=== PATIENT | female | born 1980 | race Caucasian/White ===

== ENCOUNTER 2023-10-02 16:36 | Emergency (ER) | payer BC, OTHER, SELFPAY ==
[2023-10-02 16:53] VITALS: BP 121/83; PULSE 78; RESP 18; TEMP 36.9; O2SAT 100; BMI 20.9
--- NOTE | 2023-10-02 17:22 | ED.EXTPRO ---
HPI - Extremity Problem <Jus Guadalupe PA-C - Last Filed: 10/02/23 17:41> General Chief complaint: Extremity Problem,Nontraumatic Stated complaint: Left arm injury Time Seen by Provider: 10/02/23 17:22 Source: patient Mode of arrival: Ambulatory History of Present Illness HPI Narrative: This is a 43-year-old female presents emergency department due to a developing mass affecting her left forearm area over the last week. She states it is somewhat tender to the touch with mild redness. She denies any fevers, nausea, vomiting, or any other concerning signs or symptoms. History of meth use although she denies any injecting in that area. Related Data Previous Rx's Medication Instructions Recorded doxycycline hyclate 100 mg capsule 100 mg PO BID #14 caps 10/02/23 Allergies Allergy/AdvReac Type Severity Reaction Status Date / Time No Known Drug Allergies Allergy Verified 10/02/23 17:01 Review of Systems <Jus Guadalupe PA-C - Last Filed: 10/02/23 17:41> Review of Systems Narrative: GENERAL: Denies chills, fatigue, malaise, fever, sweats. HEENT: Denies sinus pain, ear pain, sore throat, difficulty swallowing, dizziness. RESPIRATORY: Denies dyspnea, cough, wheezing, hemoptysis, sputum. CARDIOVASCULAR: Denies chest pain, palpitations, orthopnea, edema, GASTROINTESTINAL: Denies nausea, vomiting, abdominal pain, diarrhea, constipation, melena. : Denies dysuria, frequency, incontinence, hematuria, urinary retention. MUSCULOSKELETAL: denies weakness, joint pain, or bony pain SKIN: Forearm mass NEUROLOGIC: Denies weakness, headache, numbness, change in speech, confusion, seizures, incoordination. PSYCHIATRIC: No concerning psychosocial issues. 12 point review of systems is negative except for those stated above Patient History <MERRY Negrete Last Filed: 10/02/23 17:41> Social History Smoking Status: Current every day smoker Smoking Status: Current every day smoker Substance Use Type: former substance user and methamphetamine Exam <MERRY Negrete Last Filed: 10/02/23 17:41> Narrative Exam Narrative: GENERAL: Well-developed patient, in mild distress. HEAD: Atraumatic. Normocephalic. EYES: Pupils equal round and reactive. Extraocular motions intact. No scleral icterus. No injection or drainage. ENT: Nose without bleeding, purulent drainage. Throat without erythema, tonsillar hypertrophy or exudate. Airway patent. NECK: Trachea midline. Non tender EXTREMITIES: No edema or joint tenderness. NEURO: AOx3. SKIN: Area of erythema, warmth, and induration to the left forearm. No palpable areas of fluctuance. Initial Vital Signs Initial Vital Signs: Vital Signs Temperature 98.4 F 10/02/23 16:53 Pulse Rate 78 10/02/23 16:53 Respiratory Rate 18 10/02/23 16:53 Blood Pressure 121/83 10/02/23 16:53 Pulse Oximetry 100 10/02/23 16:53 Oxygen Delivery Method Room Air 10/02/23 16:53 <Roger Allen DO - Last Filed: 10/02/23 17:43> Initial Vital Signs Initial Vital Signs: Vital Signs Temperature 98.4 F 10/02/23 16:53 Pulse Rate 78 10/02/23 16:53 Respiratory Rate 18 10/02/23 16:53 Blood Pressure 121/83 10/02/23 16:53 Pulse Oximetry 100 10/02/23 16:53 Oxygen Delivery Method Room Air 10/02/23 16:53 Course <Jus Guadalupe PA-C - Last Filed: 10/02/23 17:41> Vital Signs Vital signs: Vital Signs - 8 hr 10/02/23 16:53 Temperature 98.4 F Pulse Rate 78 Respiratory Rate 18 Blood Pressure 121/83 Pulse Oximetry 100 Oxygen Delivery Method Room Air <DO Joan Ferreira Last Filed: 10/02/23 17:43> Vital Signs Vital signs: Vital Signs - 8 hr 10/02/23 16:53 Temperature 98.4 F Pulse Rate 78 Respiratory Rate 18 Blood Pressure 121/83 Pulse Oximetry 100 Oxygen Delivery Method Room Air MDM - Extremity (Nontraumatic) <MERRY Negrete Last Filed: 10/02/23 17:41> MDM Narrative Medical decision making narrative: ED course: This is a 43-year-old female presents to the emergency department due to a possible developing abscess of the left forearm. On palpation there was no palpable areas of fluctuance that would benefit from incision and drainage is the entirety of the area was significantly indurated. No joint stiffness or concern for any kind of septic joint. We will attempt a course of oral antibiotics. Did state that in the event that the oral antibiotics did not help to improve the patient that it may benefit from an incision and drainage in the future. CC: Forearm mass Complicating co-morbidities: Meth use Data collected from: Previous notes Medical records reviewed: Patient was not been to this emergency department the past Differential considered, but not limited to: Abscess, cellulitis, lipoma Exam documented above, pertinent findings include: Possible developing abscess of the left forearm Lab Test results independently reviewed as above. Pertinent findings: None obtained Imaging studies independently reviewed: None obtained Scores Used: None MIPS Elements: None Consultations: None Treatments: None Re-evaluations: None Discussion: Discussed plan with the patient was comfortable with the plan Diagnosis: Skin infection Disposition: see below, along with detailed discharge instructions that have been reviewed with patient as well as indications for ED re-evaluation and additional outpatient follow up Discharge Plan Departure Patient Disposition: Home Clinical Impression: Skin infection Instructions: DI for Cellulitis -- Adult Activity Restrictions/Additional Instructions: Thank you for coming to the [facility] Emergency Department today. As we discussed this maybe a developing abscess although at this time I do not feel any areas of fluctuance that would benefit from an incision and drainage. Please take the oral antibiotics as prescribed in the hopes that this would treat your skin infection. Please return to the emergency department if you develop any significant worsening or redness spreading of the arm, fevers, or any other concerning signs or symptoms. I hope you feel better soon. Please follow up with your primary care provider within a week if your symptoms continue. If you do not have a primary care provider please contact the [facility] Resource line at [phone]. They will ask some questions about your medical history and help you get set up with a provider in the community. Prescriptions: New doxycycline hyclate 100 mg capsule 100 mg PO BID Qty: 14 0RF Stand Alone Forms: Patient Portal/API ED Sign-out <Roger Allen, DO - Last Filed: 10/02/23 17:43> Cosign ED Attending Coschandlerature Attestation: Dr Allen Co-Sign Statement: I was available for consultation during this patient's emergency department visit. This chart is signed by myself for administrative purposes only. I did not have direct contact with this patient during this visit. They were seen independently by the APC.
--- NOTE | 2023-10-02 18:34 | PC.NURSE ---
first time meeting pt at time of d/c, refer to PA note or assessment
== END 2023-10-02 18:15 | disposition home or self-care (01) ==
PROVIDERS: Emergency Provider Physician Assistant Medical
DX: R22.32 Localized swelling, mass and lump, left upper limb (principal); L08.9 Local infection of the skin and subcutaneous tissue, unspecified
CPT/HCPCS: 99281; 99283

== ENCOUNTER → 2023-10-20 12:35 | Outpatient (CLI) | payer BC, OTHER, SELFPAY ==
--- NOTE | 2023-10-20 12:39 | DI.US.S_ITS ---
PROCEDURE: US EXTREMITY NONVASC LOWER LT INDICATIONS: Swelling of left upper extremity. TECHNIQUE: Real-time scanning was performed of the antecubital fossa, with image documentation. COMPARISON: None. FINDINGS: Skin wound is seen at the antecubital fossa extending through the subcutaneous tissues. No involvement of the underlying biceps muscle is seen. There is surrounding subcutaneous edema. No definite well-defined drainable fluid collection. IMPRESSION: Skin wound is seen at the area of concern. No involvement of the deeper musculature. No definite drainable fluid collection. Approved by: Kory Keith M.D. on 10/21/2023 at 9:15
[2023-10-20 13:47] LABS: Add Manual Diff / Slide Review NO; Basophils Absolute Auto 100 /uL (0-100); Basophils Percent Auto 1.1 % (0-2); Eosinophils Absolute Auto 0 /uL (0-450); Eosinophils Percent Auto 0.8 % (2-4); Hematocrit 26.4 % (36-46); Hemoglobin 8.3 g/dL (12.0-16.0); Lymphocytes Absolute Auto 2300 /uL (1100-4500); Lymphocytes Percent Auto 40.9 % (25-40); Mean Corpuscular HGB Conc 31.5 % (30-36); Mean Corpuscular Hemoglobin 24.3 PG (26-34); Mean Corpuscular Volume 77.3 fL (80-100); Monocytes Absolute Auto 300 /uL (0-900); Monocytes Percent Auto 5.1 % (3-14); Neutrophils Absolute Auto 2900 /uL (1500-7000); Neutrophils Percent Auto 52.1 % (50-75); Platelet Count 240 X10^3/uL (150-400); Red Blood Cell Count 3.42 X10^6/uL (4.0-5.2); Red Cell Distribution Width 31.5 % (11.6-14.8); White Blood Cell Count 5.6 X10^3/uL (4.5-11.0)
[2023-10-20 13:58] LABS: Anisocytosis 2+
[2023-10-20 14:20] LABS: HEMOLYSIS < 15 (0-50); Iron 41 ug/dL (37-170)
[2023-10-20 14:25] LABS: Alanine Aminotransferase 33 IU/L (<35); Albumin 4.6 g/dL (3.5-5.0); Albumin Globulin Ratio 1.5 (1.0-2.8); Alkaline Phosphatase 43 U/L (38-126); Aspartate Aminotransferase 40 IU/L (14-36); BUN Creatinine Ratio 15.7 (6-22); Bilirubin Total 0.3 mg/dL (0.2-1.3); Blood Urea Nitrogen 14 mg/dL (7-17); Calcium 8.9 mg/dL (8.4-10.2); Carbon Dioxide 26 mmol/L (22-32); Chloride 104 mmol/L (98-107); Estimated Glomerular Filt Rate > 60 mL/min (>60); Globulin 3.1 g/dL (1.7-4.1); Glucose 77 mg/dL (70-100); HEMOLYSIS < 15 (0-50); Potassium 4.2 mmol/L (3.4-5.1); Sodium 137 mmol/L (137-145); Total Protein 7.7 g/dL (6.3-8.2)
[2023-10-20 14:35] LABS: Hemoglobin A1C% w Est Avg Glu 4.9 % (4.0-6.0); Percent Iron Saturation 8 % (15-50); Total Iron Binding Capacity 515 ug/dL (265-497); Transferrin 384 mg/dL (206-381)
[2023-10-20 14:40] LABS: Prolactin 48.3 ng/mL (3.0-18.6)
[2023-10-20 14:58] LABS: Ferritin 7 ng/mL (6-137)
[2023-10-20 15:06] LABS: Follicle Stimulating Hormone 2.12 mIU/mL; Luteinizing Hormone 1.18 mIU/mL
[2023-10-20 15:40] LABS: HIV 1 & 2 Ab/Ag 4th Gen Combo NEGATIVE (NEGATIVE); Hep C Virus Ab w/Reflex Quant NEGATIVE s/c (NEGATIVE)
[2023-10-20 16:05] LABS: Free T4, Direct Thyroxine 0.11 ng/dL (0.78-2.19)
[2023-10-22 05:14] LABS: RPR Screen Non Reactive (Non Reactive)
[2023-10-28 13:36] LABS: Percent Free Testosterone 1.78 % (0.50-2.80); Testosterone Free 0.13 ng/dL (0.10-0.85); Testosterone Total 7.3 ng/dL (.)
== END ==
PROVIDERS: PCP Family Medicine; Referring Provider Family Medicine; Visit Provider Family Medicine
DX: L08.9 Local infection of the skin and subcutaneous tissue, unspecified (principal); M79.89 Other specified soft tissue disorders; E61.1 Iron deficiency; F19.10 Other psychoactive substance abuse, uncomplicated; N93.9 Abnormal uterine and vaginal bleeding, unspecified; Z11.3 Encounter for screening for infections with a predominantly sexual mode of transmission
CPT/HCPCS: 36415; 76882; 80053; 82728; 83001; 83002; 83036; 83540; 83550; 84146; 84402; 84403; 84439; 84443; 85025; 86592; 86803; 87389

== ENCOUNTER → 2024-12-12 08:17 | Outpatient (CLI) | payer OTHER, SELFPAY ==
[2024-12-12 08:55] LABS: Add Manual Diff / Slide Review NO; Hematocrit 28.4 % (36-46); Hemoglobin 9.1 g/dL (12.0-16.0); Lymphocytes Absolute Auto 1100 /uL (1100-4500); Mean Corpuscular HGB Conc 32.2 % (30-36); Mean Corpuscular Hemoglobin 28.3 PG (26-34); Mean Corpuscular Volume 88.0 fL (80-100); Platelet Count 184 X10^3/uL (150-400)
[2024-12-12 09:22] LABS: HEMOLYSIS < 15 (0-50)
[2024-12-12 09:31] LABS: Alanine Aminotransferase 18 IU/L (<35); Albumin 4.6 g/dL (3.5-5.0); Albumin Globulin Ratio 1.7 (1.0-2.8); Alkaline Phosphatase 39 U/L (38-126); Blood Urea Nitrogen 13 mg/dL (7-17); Calcium 9.1 mg/dL (8.4-10.2); Carbon Dioxide 25 mmol/L (22-32); Chloride 104 mmol/L (98-107); Estimated Glomerular Filt Rate > 60 mL/min (>60); Globulin 2.7 g/dL (1.7-4.1); Glucose 86 mg/dL (70-99); HEMOLYSIS < 15 (0-50); Potassium 4.4 mmol/L (3.4-5.1); Sodium 137 mmol/L (137-145); Total Protein 7.3 g/dL (6.3-8.2)
[2024-12-12 09:40] LABS: Total Iron Binding Capacity 407 ug/dL (265-497); Transferrin 337 mg/dL (206-381)
[2024-12-12 09:58] LABS: TSH w/ Reflex to FT4 18.20 uIU/mL (0.47-4.68)
[2024-12-12 10:03] LABS: Ferritin 27 ng/mL (6-137)
[2024-12-12 14:35] LABS: Iron 146 ug/dL (37-170); Percent Iron Saturation 36 % (15-50)
[2024-12-12 14:51] LABS: Free T4, Direct Thyroxine 1.28 ng/dL (0.78-2.19)
== END ==
PROVIDERS: PCP Family Medicine; Referring Provider Family Medicine; Visit Provider Family Medicine
DX: E61.1 Iron deficiency (principal); E03.9 Hypothyroidism, unspecified; R79.89 Other specified abnormal findings of blood chemistry
CPT/HCPCS: 36415; 80053; 82728; 83540; 83550; 84146; 84439; 84443; 85025

== ENCOUNTER → 2025-01-21 11:55 | Outpatient (CLI) | payer OTHER, SELFPAY ==
--- NOTE | 2025-01-21 11:56 | DI.US.S_ITS ---
PROCEDURE: US PELVIC COMPLETE INDICATIONS: Abnormal uterine bleeding TECHNIQUE: Real-time scanning was performed of the pelvic organs, with image documentation. Additional endovaginal scanning was necessary due to incomplete visualization of the adnexal and endometrial structures by transabdominal scanning. COMPARISON: None. FINDINGS: Uterus: 9.5 x 4.9 x 6.1 cm. Anteverted positioning. The endometrium measures 14 mm. Ovaries: Right ovary measures 6 mL. Left ovary measures 4 mL. No significant solid or cystic lesion identified. Other: No pathologic free abdominal or pelvic fluid. IMPRESSION: Endometrium measures 14 mm, which is borderline thickened. Consider 1-2 month follow-up to assess for temporal thinning. No significant adnexal abnormality. Dictated by: Russell Mason M.D. on 01/21/2025 at 13:01 Approved by: Russell Mason M.D. on 01/21/2025 at 13:03
--- NOTE | 2025-01-21 11:56 | DI.MRI.S_ITS ---
PROCEDURE: MR BRAIN (PITUITARY) WWO CON INDICATIONS: elevated prolactin TECHNIQUE: Noncontrast sagittal and axial FLAIR, axial gradient echo, axial diffusion and ADC through the brain. Thin-slice sagittal and coronal T1 spin echo, coronal T2 fast spin echo through the pituitary. After the administration contrast, optional dynamic coronal T1 spin echo, thin-slice coronal and sagittal T1 spin echo images through the pituitary fossa; axial and coronal and sagittal T1 spin echo with fat saturation through the brain. COMPARISON: None. FINDINGS: Image quality: Excellent. Pituitary Gland: The pituitary gland demonstrates normal signal and bulk. On the postcontrast imaging, there is a mild focus that demonstrates decreased enhancement, measuring 4 x 2 mm, as on series 18 image 4. The pituitary stalk and infundibulum have an unremarkable appearance. A normal appearing pituitary bright spot is seen posteriorly on the precontrast sagittal T1-weighted images. The optic chiasm and the ventral forebrain have an unremarkable appearance. CSF Spaces: Ventricles are normal in size and shape. Basal cisterns are patent. No extra-axial fluid collections. Brain: No intracranial bleeds or mass effects. No abnormal intracranial enhancement. Marroquin-white matter interface is intact. Diffusion weighted images demonstrate no acute ischemic insults. Brainstem is normal. Normal intravascular flow voids are present. Skull and face: Calvarial marrow is normal in signal. Orbits appear normal. Sinuses: Sinuses and mastoids are clear. IMPRESSION: Potential 4 mm left-sided pituitary adenoma. Differential diagnosis includes artifact. Please consider follow-up in 6-12 months. Dictated by: Corky Barbosa M.D. on 01/21/2025 at 13:09 Approved by: Corky Barbosa M.D. on 01/21/2025 at 13:14
== END ==
LOC: US 11:56
PROVIDERS: PCP Family Medicine; Referring Provider Family Medicine; Visit Provider Family Medicine
DX: N93.9 Abnormal uterine and vaginal bleeding, unspecified (principal); E61.1 Iron deficiency; R79.89 Other specified abnormal findings of blood chemistry
CPT/HCPCS: 70553; 76830; 76856; A9579

== ENCOUNTER → 2025-02-12 15:31 | Outpatient (CLI) | payer OTHER, SELFPAY ==
[2025-02-12 16:18] LABS: Add Manual Diff / Slide Review NO; Hematocrit 32.2 % (36-46); Hemoglobin 10.6 g/dL (12.0-16.0); Lymphocytes Absolute Auto 2000 /uL (1100-4500); Mean Corpuscular HGB Conc 33.0 % (30-36); Mean Corpuscular Hemoglobin 29.8 PG (26-34); Mean Corpuscular Volume 90.3 fL (80-100); Platelet Count 151 X10^3/uL (150-400)
[2025-02-12 17:13] LABS: Thyroid Stimulating Hormone 3.52 uIU/mL (0.47-4.68)
[2025-02-12 17:20] LABS: Ferritin 10 ng/mL (6-137)
[2025-02-12 17:48] LABS: Folate 16.6 ng/mL (2.76-20.0); Vitamin B12 587 pg/mL (239-931)
== END ==
PROVIDERS: PCP Family Medicine; Referring Provider Family Medicine; Visit Provider Family Medicine
DX: R79.89 Other specified abnormal findings of blood chemistry (principal); E03.9 Hypothyroidism, unspecified; E61.1 Iron deficiency; D64.9 Anemia, unspecified; N93.9 Abnormal uterine and vaginal bleeding, unspecified; D72.819 Decreased white blood cell count, unspecified
CPT/HCPCS: 36415; 82607; 82728; 82746; 84443; 85025

== ENCOUNTER → 2025-02-27 14:22 | Oncology outpatient (ONC) | payer OTHER, SELFPAY ==
[2025-02-27 14:35] VITALS: BP 106/68; PULSE 73; RESP 16; TEMP 37.2; O2SAT 100
[2025-02-27] MEDS: IRON SUCROSE 100 MG in SODIUM CHLORIDE 0.9% 100 ML 250 MG IV (14:41)
[2025-02-27 15:40] VITALS: BP 101/57; PULSE 65; RESP 16; TEMP 36.9; O2SAT 100
== END ==
PROVIDERS: PCP Family Medicine; Referring Provider Family Medicine; Visit Provider Family Medicine
DX: E61.1 Iron deficiency (principal)
CPT/HCPCS: 96365; J1756; J7050

== ENCOUNTER → 2025-03-01 15:48 | Outpatient (CLI) | payer OTHER, SELFPAY ==
--- NOTE | 2025-03-01 15:49 | DI.US.S_ITS ---
PROCEDURE: US PELVIC COMPLETE INDICATIONS: 1 mo f/u for thickened endometrium; abnormal uterine bleedin TECHNIQUE: Real-time scanning was performed of the pelvic organs, with image documentation. Additional endovaginal scanning was necessary due to incomplete visualization of the adnexal and endometrial structures by transabdominal scanning. COMPARISON: [facility], , US PELVIC COMPLETE, 01/21/2025, 12:19. FINDINGS: Uterus: Uterus is anteverted and normal in size at 7.8 x 6.3 x 5.4 cm. The myometrium is heterogeneous. The endometrium measures 6.4 mm combined thickness. Ovaries: The right ovary measures 2.8 x 2.2 x 1.4 cm, with a calculated ovarian volume of 4.5 cc. The left ovary measures 2.8 x 2.7 x 2.3 cm, with a calculated ovarian volume of 8.8 cc. The ovaries have a normal sonographic appearance. Less than 12 follicles can be seen in each ovary. No adnexal masses are seen. Other: No pathologic free abdominal or pelvic fluid. IMPRESSION: Endometrium measures 6.4 mm compared to 14 mm on prior exam. No focal mass. We strive to produce accurate, complete, and clear reports of imaging services. To assist us in improving patient care, this report was composed using standard report templates and voice recognition software. Therefore, it may contain abnormal punctuation, insertions and/or omissions. Occasional wrong-word or sound-alike substitutions may occur. Though we review the report and make efforts to correct it, we do recommend that the report be read carefully in proper context to recognize any text inaccuracies. Dictated by: Kelsie Ernst M.D. on 03/02/2025 at 18:20 Approved by: Kelsie Ernst M.D. on 03/02/2025 at 18:21
== END ==
LOC: US 15:49
PROVIDERS: PCP Family Medicine; Referring Provider Family Medicine; Visit Provider Family Medicine
DX: N93.9 Abnormal uterine and vaginal bleeding, unspecified (principal); E61.1 Iron deficiency; R93.89 Abnormal findings on diagnostic imaging of other specified body structures
CPT/HCPCS: 76830; 76856